=== PATIENT | male | born 1990 | race Two or more races ===

== ENCOUNTER 2024-08-30 17:40 | Observation (INO) ==
[2024-08-30 18:08] LABS: BASOPHILS # (AUTO) 0.1 10^3/uL (0.0-0.1); BASOPHILS % (AUTO) 1.1 %; EOSINOPHILS # (AUTO) 0.2 10^3/uL (0.0-0.7); EOSINOPHILS % (AUTO) 3.3 %; HCT - HEMATOCRIT 34.9 % (42.0-52.0); HGB - HEMOGLOBIN 11.8 g/dL (14.0-18.0); LYMPHOCYTES % (AUTO) 30.4 %; MEAN CORPUSCULAR HEMOGLOBIN 33.2 pg (27.0-31.0); MEAN CORPUSCULAR HGB CONC 33.8 g/dL (32.0-36.0); MEAN CORPUSCULAR VOLUME 98.3 fL (80.0-94.0); MEAN PLATELET VOLUME 9.5 fL (7.4-11.4); MONOCYTES % (AUTO) 14.8 %; NEUTROPHILS # (AUTO) 3.1 10^3/uL (1.5-6.6); NEUTROPHILS % (AUTO) 48.5 %; PLT - PLATELET COUNT 255 10^3/uL (130-450); RED BLOOD COUNT 3.55 10^6/uL (4.70-6.10); RED CELL DISTRIBUTION WIDTH 13.1 % (12.0-15.0); WHITE BLOOD COUNT 6.4 x10^3/uL (4.8-10.8)
--- NOTE | 2024-08-30 18:14 | ED Physician Documentation ---
History of Present Illness Stated complaint Stated Complaint: ETOH WITHDRAWL/HALLUCINATIONS Chief complaint Chief Complaint: Neuro Additonal information Additional information: 34-year-old male currently at [facility] for the last 3 days presents emergency department for increased altered mental status confusion and jaundice. Last alcoholic beverage was about 3 days ago he usually drinks about 1/5 of vodka a day. Patient is completely altered and unable to contribute anything to the history he is seen restless fidgeting with himself and saying things that do not make any sense. His girlfriend who is only been with for a total of 4 months is at bedside she is unsure if he has any history of alcohol withdrawal seizures but does report she has that he has been to rehab in the past. [place] Coma Scale Assess Eye opening: Spontaneous Verbal response: Inappropriate Motor response: Obeys Commands Total score: 13 Meds/Allgy Home Medications Ambulatory Orders Medication Instructions Recorded Confirmed No Known Home Medications 08/30/24 08/30/24 Allergies Allergies Allergy/AdvReac Type Severity Reaction Status Date / Time No Known Drug Allergies Allergy Verified 08/30/24 17:48 PFSH Social History Social History Do you feel safe in your home environment?: Yes Suffered physical, verbal, emotional, or financial abuse?: No Exam Exam Vital Signs: Vital Signs x48h Temp Pulse Resp BP Pulse Ox 08/30/24 19:28 62 19 98/79 97 08/30/24 17:46 36.9 C 88 20 123/81 98 Constitutional abnormal general appearance (Ill-appearing, jaundice), no apparent distress, average body habitus, no limitations and alert HENMT normocephalic and head/scalp atraumatic Eyes PERRL, conjunctivae normal, scleral icterus noted (Severe jaundice to the bilateral sclera) and alignment normal Chest inspection of chest normal and palpation of chest normal Respiratory breath sounds equal bilaterally and normal respiratory effort Cardiovascular normal heart rate noted and regular rhythm noted Gastrointestinal abdomen normal to inspection, abdomen soft to palpation and nontender to palpation Genitourinary no CVA tenderness Extremities normal to inspection and normal to palpation Psychiatry orientation abnormal (disoriented to person), (disoriented to place) and (disoriented to time) and thought process abnormality noted (confused) Skin no jaundice (jaundiced skin) Results Vitals Vitals: Vital Signs - 24 hr 08/30/24 17:46 08/30/24 19:28 Temperature 36.9 C Temperature Source Temporal Artery Scan Pulse Rate 88 62 Respiratory Rate 20 19 Blood Pressure 123/81 98/79 O2 Saturation 98 97 O2 Source Room air Room air Pain Intensity 0 0 Oxygen O2 Source Room air Labs Labs: Laboratory Tests 08/30/24 08/30/24 18:05 18:32 WBC 6.4 RBC 3.55 L Hgb 11.8 L Hct 34.9 L MCV 98.3 H MCH 33.2 H MCHC 33.8 RDW 13.1 Plt Count 255 MPV 9.5 Neut # (Auto) 3.1 Lymph # (Auto) 2.0 [place] # (Auto) 1.0 Eos # (Auto) 0.2 Baso # (Auto) 0.1 Absolute Nucleated RBC 0.00 Nucleated RBC % 0.0 PT 13.5 H INR 1.2 Sodium 138 Potassium 3.4 L Chloride 97 L Carbon Dioxide 34 H Anion Gap 7.0 BUN 7 Creatinine 0.5 L Estimated GFR (MDRD) 193 Glucose 101 Calcium 9.8 Total Bilirubin 5.6 H AST 192 H ALT 67 H Alkaline Phosphatase 328 H Ammonia 49.8 Total Protein 8.0 Albumin 3.8 Globulin 4.2 Albumin/Globulin Ratio 0.9 L Urine Color YELLOW Urine Clarity CLEAR Urine pH 7.0 Ur Specific [place] <=1.005 Urine Protein NEGATIVE Urine Glucose (UA) NEGATIVE Urine Ketones NEGATIVE Urine Occult Blood NEGATIVE Urine Nitrite NEGATIVE Urine Bilirubin NEGATIVE Urine Urobilinogen 1 (NORMAL) Ur Leukocyte Esterase NEGATIVE Ur Microscopic Review NOT INDICATED Urine Culture Comments NOT INDICATED Urine Opiates Screen NEGATIVE Ur Buprenorphine Scrn NEGATIVE Ur Oxycodone Screen NEGATIVE Urine Methadone Screen NEGATIVE Ur Barbiturates Screen NEGATIVE Ur Tricyclics Screen NEGATIVE Ur Phencyclidine Scrn NEGATIVE Ur Amphetamine Screen NEGATIVE U Methamphetamines Scrn NEGATIVE U Benzodiazepines Scrn POSITIVE H Urine Cocaine Screen NEGATIVE U Cannabinoids Screen NEGATIVE Ur Drug Screen Comment CUTOFF CONC BELOW: Ethyl Alcohol < 10.0 Rads (name of study) Head CT without: Relevant Findings:: Final report received and EMP independent interpretation of test Interpretation: IMPRESSION: No acute intracranial pathology. Chronic right maxillary sinusitis. PD Medical Decision Making ED course ED course: 34-year-old male presents emerged department via EMS from [facility]. Patient is very altered he is unable to contribute anything to the history is very jaundiced with scleral icterus. Labs are complete for further evaluation no leukocytosis mild anemia, hemoglobin 11.8 PT 13.5 INR 1.2. Creatinine 0.5, normal GFR and BUN. Bilirubin elevated at 5.6, AST 892, ALT 67, alk phos 328. He has no abdominal tenderness or pain with palpation normal urinalysis. U tox is positive for benzos and negative EtOH. Given how significant patient's symptoms are with his alcohol withdrawal symptoms and liver failure I do not believe that he is safe to discharge back to [facility]. His ammonia level was normal. I spoke with Starr Monaco, hospitalist DARLENE who has graciously agreed to admit patient for alcohol withdrawal symptoms and alcoholic liver failure. Head CT was also complete while he was here given his altered mental status and was found to not have any intracranial hemorrhages or abnormalities or findings. Discharge Plan Discharge Patient Disposition: 68 [facility] DC/Xfer Condition: Stable Print Language: [place]araguan Stand Alone Forms: PCP List
[2024-08-30 18:16] LABS: INR 1.2 (0.8-1.2); PT - PROTHROMBIN TIME 13.5 secs (9.9-12.6)
[2024-08-30] MEDS: LORazepam 2 MG/ML VIAL IVP STA ×2 (18:19→20:23)
[2024-08-30] MEDS: SODIUM CHLORIDE 0.9% 1,000 ML IV STA (18:21)
[2024-08-30] MEDS: THIAMINE 100 MG TABLET PO STA (18:21)
[2024-08-30 18:26] LABS: ALBUMIN 3.8 g/dL (3.2-5.5); ALBUMIN/GLOBULIN RATIO 0.9 (1.0-2.2); ALKALINE PHOSPHATASE 328 IU/L (42-121); ALT ALANINE AMINOTRANSFERASE 67 IU/L (10-60); AST ASPARTATE AMINOTRANSFERASE 192 IU/L (10-42); BILIRUBIN,TOTAL 5.6 mg/dL (0.2-1.0); BUN - BLOOD UREA NITROGEN 7 mg/dL (6-20); CALCIUM 9.8 mg/dL (8.5-10.3); CARBON DIOXIDE - CO2 34 mmol/L (21-32); CHLORIDE 97 mmol/L (101-111); CREATININE 0.5 mg/dL (0.6-1.3); ETOH - ETHANOL < 10.0 mg/dL; GFR - MDRD 193 (>89); GLUCOSE 101 mg/dL (74-104); POTASSIUM 3.4 mmol/L (3.5-4.5); SODIUM 138 mmol/L (135-145)
[2024-08-30 18:40] LABS: BILIRUBIN,URINE NEGATIVE (NEGATIVE); GLUCOSE, URINE (UA) NEGATIVE (NEGATIVE); KETONES,URINE (UA) NEGATIVE (NEGATIVE); LEUKOCYTE ESTERASE, URINE NEGATIVE (NEGATIVE); NITRITE,URINE NEGATIVE (NEGATIVE); OCCULT BLOOD,URINE NEGATIVE (NEGATIVE); PROTEIN,URINE NEGATIVE (NEGATIVE); UROBILINOGEN,URINE 1 (NORMAL) E.U./dL (NORMAL)
[2024-08-30 18:42] LABS: CLARITY,URINE CLEAR (CLEAR)
[2024-08-30 18:52] LABS: AMPHETAMINE SCREEN,URINE NEGATIVE (NEGATIVE); BARBITURATE SCREEN,UR NEGATIVE (NEGATIVE); BENZODIAZEPINES SCREEN, URINE POSITIVE (NEGATIVE); BUPRENORPHINE SCREEN, URINE NEGATIVE (NEGATIVE); COCAINE SCREEN URINE NEGATIVE (NEGATIVE); METHADONE SCREEN, URINE NEGATIVE (NEGATIVE); METHAMPHETAMINES SCREEN, URINE NEGATIVE (NEGATIVE); OPIATE SCREEN, URINE NEGATIVE (NEGATIVE); OXYCODONE SCREEN, URINE NEGATIVE (NEGATIVE); THC CANNABINOID SCREEN, URINE NEGATIVE (NEGATIVE); TRICYCLIC ANTIDEPRESSANT,URINE NEGATIVE (NEGATIVE)
--- NOTE | 2024-08-30 19:08 | CT Report ---
PROCEDURE: CT Head WO INDICATIONS: AMS TECHNIQUE: Noncontrast 4.5 mm thick angled axial sections acquired from the foramen magnum to the vertex. For r adiation dose reduction, the following was used: automated exposure control, adjustment of mA and/or kV according to patient size. COMPARISON: None. FINDINGS: Image quality: Excellent. CSF spaces: Basal cisterns are patent. No extra-axial fluid collections. Ventricles are normal in size and shape. Brain: No midline shift. No intracranial masses or hemorrhage. Lock-white matter interface is norm al. Skull and face: Calvarium and visualized facial bones are intact, without suspicious lesions. Sinuses: Circumferential thickening of the right maxillary sinus, with mild wall sclerosis and hypert rophy. IMPRESSION: No acute intracranial pathology. Chronic right maxillary sinusitis. Reviewed by: Albert Santos MD on 08/30/2024 7:06 PM PDT Approved by: Albert Santos MD on 08/30/2024 7:06 PM PDT Station ID: [id number]
--- NOTE | 2024-08-30 21:15 | HISTORY & PHYSICAL EXAMINATION ---
Chief Complaint Chief Complaint Chief Complaint: hallucinations and tremors History of Present Illness Admitted From Admitted From:: [facility] History Obtained From Records Reviewed: none History obtained from: patient and SO Kaci History of Present Illness HPI Comment/Other: 34 yo male presents with above complaints. voluntary to alcohol detox on 08/28. having worsening sx for the last day, has been several days without a drink. tremulous and confused in the Ed. SO Kaci at bedside states this confusion started yesterday, much worse today. He was excited to go to detox and hopeful for the future. has been drinking since age [age]. today was also noted to have icterus of his skin and sclera. Kaci states that this was not present on 08/28. does have some nausea. Does not smoke, denies cannabis or other substances. has been unemployed for about a month. no pMhx or surgical hx. mother and father both with alcoholism in recovery Meds/Allgy Home Medications Ambulatory Orders Medication Instructions Recorded Confirmed No Known Home Medications 08/30/24 08/30/24 Allergies Allergies Allergy/AdvReac Type Severity Reaction Status Date / Time No Known Drug Allergies Allergy Verified 08/30/24 17:48 PFSH Active Problems All Active Problems (Updated 08/30/24 @ 21:27 by DARLENE Sherwood) Acalculous cholecystitis (Acute) Alcohol withdrawal (Acute) Acute hepatic failure (Acute) Social History Social History Do you feel safe in your home environment?: Yes Suffered physical, verbal, emotional, or financial abuse?: No POLST Patient has POLST: No Review of Systems Status of ROS: 10 or more systems reviewed and unremarkable except as noted in history and below Constitutional Reports: Malaise; Denies: Fatigue Eyes Denies: Change in vision Cardiovascular Reports: palpitations Respiratory Reports: Cough (recent cold, improving) Gastrointestinal Reports: Abdominal pain Integumentary/Breast Denies: Itching Neurological Denies: Headache Psychiatric Reports: Anxiety and Visual hallucinations Endocrine Denies: Fatigue Prior Level of Functionality: independent Exam Exam Vital Signs: Vital Signs x48h Temp Pulse Resp BP Pulse Ox 08/30/24 20:59 75 19 118/72 98 08/30/24 19:28 62 19 98/79 97 08/30/24 17:46 36.9 C 88 20 123/81 98 Constitutional normal general appearance mild distress, well groomed, tremulous HENMT normocephalic, hearing grossly normal bilaterally and dentition normal Eyes scleral icterus Neck/C-Spine visual inspection normal and trachea midline Lymph no lymphadenopathy noted Chest inspection of chest normal Respiratory breath sounds equal bilaterally, normal respiratory effort and clear to auscultation bilaterally Cardiovascular normal heart rate noted and regular rhythm noted Gastrointestinal abdomen normal to inspection and abdomen soft to palpation mild upper abdominal tenderness. Genitourinary no CVA tenderness Back/Pelvis spine normal to inspection Extremities normal to inspection Neurology speech normal oriented to self, month and year. not oriented to place. tremulous Psychiatry cooperative pleasant and cooperative. intermittently confused, then corrects self, re directable. Skin jaundiced. Conclusion/Plan Problem List (1) Alcohol withdrawal: Plan: patient with acute withdrawal, this is his 3rd day without a drink. his CIWA scores are 17-20 in the ED. he is responding to ativan. he is neither suicidal nor homicidal. redirectable with his confusion and behaviors. His CT of the head is normal. His ammonia level is normal. I believe his delirium is due to alcohol withdrawal and not some other cause. We will treat his alcohol withdrawal with IV Ativan based on CIWA scores. He is tremulous and is feeling anxious but does not show any tachycardia on his vital signs. Discussed with PABLO Bunn in the emergency department decision was made to admit this patient both for his acute alcohol withdrawal with elevated CIWA scores in his acute liver failure.I will admit him to observation status (2) Acute hepatic failure: Plan: I have requested the ED perform right upper quadrant ultrasound to ensure that he does not have biliary disease although I think the most likely cause of his hepatic failure is alcohol use. We will monitor his liver functions in the AM. Will also check magnesium phosphorus. His coagulation studies show an INR of 1.2 this is not grossly abnormal. Abdominal ultrasound will show any ascites that is present. His abdomen is soft and does not appear distended. He does not have an umbilical hernia. (3) Acalculous cholecystitis: Plan: Discussed right upper quadrant ultrasound with the clock repair technician. This is a preliminary reading. Gallbladder appears distended with sludge. There is no biliary ductal dilatation, thus ruling out choledocholithiasis. However given the distended gallbladder with sludge cannot rule out acalculous cholecystitis. Therefore I will place his patient on Zosyn IV 4 times daily until I have final read back which will probably be in the morning. Plan I have spent 65 minutes in the care of this patient today. This includes time [id number], review and ordering of diagnostic imaging and laboratory studies and consultation with other providers. Monitoring the patient's signs symptoms, evaluation of medication effectiveness and patient's response to treatment. Lab Results Lab results reviewed: Yes 08/30/24 18:05 08/30/24 18:05 Diagnostic Imaging Results Diagnostic Imaging Results Comments: RUQUS is pending at the time of this dictation CT of the head report reviewed. No abnormality seen. There is chronic right maxillary sinusitis Core Measures Anticipated LOS I expect patient to be DC'd or transferred within 96 hours.: Yes Issues Hospital Issues and Management Plan: Acute hepatic failure and alcohol withdrawal we will treat per protocol. Will monitor liver functions. Will rule out biliary tract disease. DVT/VTE - Prophylaxis VTE/DVT Device ordered at admit?: Yes VTE/DVT Prophylaxis med ordered at admit?: Yes
[2024-08-30] MEDS: HEPARIN 5,000 UNIT/ML VIAL SUBQ SCH (22:15)
[2024-08-30] MEDS: PIPERACILLIN/TAZOBACTAM 3.375 GM in SODIUM CHLORIDE 0.9% MINIBAG 100 ML IV SCH (22:15)
--- NOTE | 2024-08-30 22:27 | Ultrasound Report ---
PROCEDURE: US Abdomen Limited INDICATIONS: RUQ, eval gallbladder, jaundice TECHNIQUE: Real-time focused scanning was performed of the abdomen, with image documentation. COMPARISONS: None. FINDINGS: Liver: The liver is enlarged measuring 23 cm in length. Parenchyma is diffusely prominently dense, c oarse, and hyperechoic. A discrete mass cannot be identified. There is appropriate direction of flow in the portal vein. Gallbladder: Dependent layering sludge in the gallbladder. The wall is at the upper limits of normal thickness measuring 3.3 mm. No pericholecystic fluid or sonographic Purdy sign. Biliary ducts: Intrahepatic bile ducts are non-dilated. Extrahepatic bile duct caliber measures 3.8 mm. Normal is 6-7 mm or less in diameter, or 10 mm or less post-cholecystectomy. Pancreas: Not well seen due to bowel gas and patient limitations. Right kidney: Normal in size and echotexture. Right kidney measures 12.7 cm long. No hydronephrosis or nephrolithiasis. No solid masses. No complex renal cystic lesions which require follow-up. IVC: Intrahepatic inferior vena cava is patent. Miscellaneous: No free abdominal fluid. IMPRESSION: Coarse and markedly hyperechoic hepatic parenchyma suggesting steatosis and/or other intrinsic liver disease. No biliary dilatation. Gallbladder sludge without other signs of acute cholecystitis. Reviewed by: Amelia Fisher MD on 08/30/2024 10:26 PM PDT Approved by: Amelia Fisher MD on 08/30/2024 10:26 PM PDT Station ID: [id number]
[2024-08-30] MEDS: LORazepam 2 MG/ML VIAL IVP PRN (22:45)
[2024-08-30] MEDS: IBUPROFEN 400 MG TABLET PO PRN (22:45)
[2024-08-31] MEDS: SODIUM CHLORIDE FLUSH 0.9% 10 ML SYRINGE IVP SCH (00:19)
[2024-08-31] MEDS: ONDANSETRON 4 MG/2 ML VIAL IVP PRN (01:27)
[2024-08-31] MEDS: SODIUM CHLORIDE FLUSH 0.9% 10 ML SYRINGE IVP PRN (05:12)
[2024-08-31 06:06] LABS: BASOPHILS # (AUTO) 0.1 10^3/uL (0.0-0.1); BASOPHILS % (AUTO) 1.2 %; EOSINOPHILS # (AUTO) 0.2 10^3/uL (0.0-0.7); EOSINOPHILS % (AUTO) 3.7 %; HCT - HEMATOCRIT 36.1 % (42.0-52.0); HGB - HEMOGLOBIN 11.9 g/dL (14.0-18.0); LYMPHOCYTES # (AUTO) 1.8 10^3/uL (1.5-3.5); LYMPHOCYTES % (AUTO) 27.3 %; MEAN CORPUSCULAR HEMOGLOBIN 33.1 pg (27.0-31.0); MEAN CORPUSCULAR VOLUME 100.6 fL (80.0-94.0); MEAN PLATELET VOLUME 9.7 fL (7.4-11.4); MONOCYTES % (AUTO) 15.6 %; NEUTROPHILS # (AUTO) 3.1 10^3/uL (1.5-6.6); NEUTROPHILS % (AUTO) 48.3 %; PLT - PLATELET COUNT 266 10^3/uL (130-450); RED BLOOD COUNT 3.59 10^6/uL (4.70-6.10); RED CELL DISTRIBUTION WIDTH 13.2 % (12.0-15.0); WHITE BLOOD COUNT 6.4 x10^3/uL (4.8-10.8)
[2024-08-31 06:21] LABS: ALBUMIN 3.7 g/dL (3.2-5.5); BILIRUBIN,DIRECT 2.94 mg/dL (0.03-0.18); CALCIUM 9.1 mg/dL (8.5-10.3); CREATININE 0.5 mg/dL (0.6-1.3); MAGNESIUM 1.9 mg/dL (1.7-2.3); PHOSPHORUS 2.4 mg/dL (2.5-5.0); POTASSIUM 3.6 mmol/L (3.5-4.5); TOTAL PROTEIN 7.4 g/dL (6.4-8.9)
--- NOTE | 2024-08-31 09:56 | PROVIDER PROGRESS NOTE ---
Subjective Subjective Subjective: Patient is very sleepy, lethargic. He does awaken, and is calm. He remains tremulous. This is his fourth day without alcohol. He states that usually takes him 2 weeks to get through withdrawals. He has never had any withdrawal seizures in the past. He said he started noticing yellowing of his eyes when he got here yesterday. He has never been told that he has liver disease. He has a long family history of alcohol use. He states that he lost his brother, and that has been him drink more frequently. Current Medications Current Medications Current Medications: Current Medications Generic Name Dose Route Start Last Admin Trade Name Freq PRN Reason Stop Dose Admin Heparin Sodium (Porcine) 5,000 unit 08/30/24 21:58 08/30/24 22:15 Heparin 5,000 Unit/Ml Vial SUBQ Not Given BID [facility] Ibuprofen 400 mg 08/30/24 21:58 08/31/24 03:35 Ibuprofen 400 Mg Tablet PO 400 mg Q4HR PRN Administration Pain 1 to 4 Lorazepam 2 mg 08/30/24 21:58 08/31/24 06:26 Lorazepam 2 Mg/Ml Vial IVP 2 mg Q30M PRN Administration CIWA >8 Protocol Ondansetron HCl 4 mg 08/30/24 21:58 08/31/24 01:27 Ondansetron 4 Mg/2 Ml Vial IVP 4 mg Q6HR PRN Administration Nausea / Vomiting Polyethylene Glycol 17 gm 08/31/24 09:00 Polyethylene Glycol 3350 17 Gm Packet PO DAILY [facility] Multivit/Folic Acid/Iron 1 tab 08/31/24 09:00 Vitamin Tablet PO DAILY [facility] Sodium Chloride 10 ml 08/30/24 21:58 08/31/24 05:12 Sodium Chloride Flush 0.9% 10 Ml Syringe IVP 10 ml PRN PRN Administration NEEDED PER PROVIDER ORDERS Sodium Chloride 10 ml 08/31/24 01:00 08/31/24 00:19 Sodium Chloride Flush 0.9% 10 Ml Syringe IVP 10 ml 0100,0900,1700 [facility] Administration Thiamine HCl 100 mg 08/31/24 09:00 Thiamine 100 Mg Tablet PO DAILY [facility] Trazodone HCl 100 mg 08/31/24 21:00 Trazodone 50 Mg Tablet PO QPM [facility] Objective Vital Signs/Intake & Output Reviewed Vital Signs: Yes Vital Signs: Vital Signs x48h Temp Pulse Resp BP Pulse Ox 08/31/24 04:25 98.4 F 62 18 124/84 99 Intake & Output: Intake & Output 08/28/24 08/29/24 08/30/24 08/31/24 23:59 23:59 23:59 23:59 Intake Total 1100 / 1100 300 / 300 Balance 1100 / 1100 300 / 300 Weight (kg) 75.9 kg Objective General Appearance: positive No acute distress, Alert and Lethargic Eyes Bilateral: positive Normal inspection, PERRL and Other (Scleral icterus noted bilaterally) ENT: positive ENT inspection nml, Pharynx nml and No signs of dehydration Neck: positive Nml inspection and Thyroid nml Respiratory: positive Chest non-tender; negative Wheezes, Rales or Rhonchi Cardiovascular: positive Regular rate & rhythm, No murmur and No gallop; negative Systolic murmur Abdomen: positive Non-tender, No organomegaly and No distention; negative Hepatomegaly or Splenomegaly Back: positive Nml inspection; negative CVA tenderness (R) or CVA tenderness (L) Skin: positive Color nml, No rash, Warm and Dry Extremities: positive Non-tender, Full ROM and No pedal edema Neurologic/Psychiatric: positive Oriented x3, Motor nml and Mood/affect nml Lab Results 08/31/24 05:37 08/31/24 05:37 Other Labs: Lab Results x24hrs 08/31/24 08/30/24 08/30/24 Range/Units 05:37 18:32 18:05 WBC 6.4 6.4 (4.8-10.8) x10^3/uL RBC 3.59 L 3.55 L (4.70-6.10) 10^6/uL Hgb 11.9 L 11.8 L (14.0-18.0) g/dL Hct 36.1 L 34.9 L (42.0-52.0) % MCV 100.6 H 98.3 H (80.0-94.0) fL MCH 33.1 H 33.2 H (27.0-31.0) pg MCHC 33.0 33.8 (32.0-36.0) g/dL RDW 13.2 13.1 (12.0-15.0) % Plt Count 266 255 (130-450) 10^3/uL MPV 9.7 9.5 (7.4-11.4) fL Neut # (Auto) 3.1 3.1 (1.5-6.6) 10^3/uL Lymph # (Auto) 1.8 2.0 (1.5-3.5) 10^3/uL [place] # (Auto) 1.0 1.0 (0.0-1.0) 10^3/uL Eos # (Auto) 0.2 0.2 (0.0-0.7) 10^3/uL Baso # (Auto) 0.1 0.1 (0.0-0.1) 10^3/uL Absolute Nucleated RBC 0.00 0.00 x10^3/uL Nucleated RBC % 0.0 0.0 /100WBC PT 13.5 H (9.9-12.6) secs INR 1.2 (0.8-1.2) Sodium 142 138 (135-145) mmol/L Potassium 3.6 3.4 L (3.5-4.5) mmol/L Chloride 102 97 L (101-111) mmol/L Carbon Dioxide 33 H 34 H (21-32) mmol/L Anion Gap 7.0 7.0 (6-13) BUN 8 7 (6-20) mg/dL Creatinine 0.5 L 0.5 L (0.6-1.3) mg/dL Estimated GFR (MDRD) 193 193 (>89) Glucose 82 101 (74-104) mg/dL Calcium 9.1 9.8 (8.5-10.3) mg/dL Phosphorus 2.4 L (2.5-5.0) mg/dL Magnesium 1.9 (1.7-2.3) mg/dL Total Bilirubin 5.0 H 5.6 H (0.2-1.0) mg/dL Direct Bilirubin 2.94 H (0.03-0.18) mg/dL AST 147 H 192 H (10-42) IU/L ALT 60 67 H (10-60) IU/L Alkaline Phosphatase 305 H 328 H (42-121) IU/L Ammonia 49.8 (18-72) umol/L Total Protein 7.4 8.0 (6.4-8.9) g/dL Albumin 3.7 3.8 (3.2-5.5) g/dL Globulin 3.7 4.2 (2.1-4.2) g/dL Albumin/Globulin Ratio 0.9 L (1.0-2.2) Urine Color YELLOW Urine Clarity CLEAR (CLEAR) Urine pH 7.0 (5.0-7.5) PH Ur Specific [place] <=1.005 (1.002-1.030) Urine Protein NEGATIVE (NEGATIVE) mg/dL Urine Glucose (UA) NEGATIVE (NEGATIVE) mg/dL Urine Ketones NEGATIVE (NEGATIVE) mg/dL Urine Occult Blood NEGATIVE (NEGATIVE) Urine Nitrite NEGATIVE (NEGATIVE) Urine Bilirubin NEGATIVE (NEGATIVE) Urine Urobilinogen 1 (NORMAL) (NORMAL) E.U./dL Ur Leukocyte Esterase NEGATIVE (NEGATIVE) Ur Microscopic Review NOT INDICATED Urine Culture Comments NOT INDICATED Urine Opiates Screen NEGATIVE (NEGATIVE) Ur Buprenorphine Scrn NEGATIVE (NEGATIVE) Ur Oxycodone Screen NEGATIVE (NEGATIVE) Urine Methadone Screen NEGATIVE (NEGATIVE) Ur Barbiturates Screen NEGATIVE (NEGATIVE) Ur Tricyclics Screen NEGATIVE (NEGATIVE) Ur Phencyclidine Scrn NEGATIVE (NEGATIVE) Ur Amphetamine Screen NEGATIVE (NEGATIVE) U Methamphetamines Scrn NEGATIVE (NEGATIVE) U Benzodiazepines Scrn POSITIVE H (NEGATIVE) Urine Cocaine Screen NEGATIVE (NEGATIVE) U Cannabinoids Screen NEGATIVE (NEGATIVE) Ur Drug Screen Comment CUTOFF CONC BELOW: Ethyl Alcohol < 10.0 mg/dL Diagnostic Imaging Diagnostic Imaging Results: positive Final report reviewed Assessment/Plan Problem List (1) Alcohol withdrawal: Impression: Patient remains in acute alcohol withdrawal. Last drink was 4 days ago. Scoring between 15-17 on CIWA. Continue Ativan as needed. Did give 1 dose of Valium. Continue multivitamin, thiamine, folic acid supplementation. Continue alcohol cessation counseling. Social work consulted, appreciate recommendations. Qualifiers: Complication of substance-induced condition: with unspecified complication Qualified Code(s): F10.939 - Alcohol use, unspecified with withdrawal, unspecified (2) Alcoholic hepatitis: Impression: Transaminitis improving. AST greater than ALT in typical alcohol use labs. [place] discriminant function of 12.6. Not a candidate for prednisolone at this time. Continue to trend. Qualifiers: Ascites presence: unspecified Qualified Code(s): K70.10 - Alcoholic hepatitis without ascites (3) Macrocytic anemia: Impression: Likely due to folic acid deficiency in setting of chronic alcohol use, as well as direct bone marrow suppression due to alcohol use. Continue to trend, transfuse for hemoglobin less than 7. (4) Hyperbilirubinemia: Impression: Scleral icterus, jaundice, elevated bilirubin likely attributed to livers inability to conjugate bilirubin, leading to an elevated direct bilirubinemia. Continue to trend, improving. Abdominal ultrasound shows gallbladder sludge without signs of acute cholecystitis. (5) Gallbladder sludge: Impression: Scleral icterus, jaundice, elevated bilirubin likely attributed to livers inability to conjugate bilirubin, leading to an elevated direct bilirubinemia. Continue to trend, improving. Abdominal ultrasound shows gallbladder sludge without signs of acute cholecystitis.
[2024-08-31] MEDS: polyethylene glycoL 3350 17 GM PACKET PO SCH (10:07)
[2024-08-31] MEDS: PRENATAL VITAMIN TABLET PO SCH (10:07)
[2024-08-31] MEDS: THIAMINE 100 MG TABLET PO SCH (10:08)
[2024-08-31] MEDS: POTASSIUM PHOSPHATE 15 MMOL in SODIUM CHLORIDE 0.9% 250 ML IV ONE (13:16)
--- NOTE | 2024-08-31 15:18 | PHARMACY PROGRESS NOTE ---
Best Possible Medication History Admit Date and Time: 08/30/242057 Home Medications Medication Instructions Recorded Confirmed Type No Known Home Medications 08/30/24 08/30/24 History Processed by: Pharmacy Medications reviewed in ED?: No Medication History completed: Yes Patient Interview: Completed Secondary Source(s): Insurance records [facility] Statement: Per [facility] interview with patient, and review of [employer] insurance records. As the person ultimately responsible for medication therapy, providers are able to order a medication from an existing home medication list in [facility] via the "Reconcile Routine" prior to Confirmation of that medication by application support technician. Such practice is discouraged except when the physician, in their clinical [place] gment, deems that a medical need exists for a medication without regard to previous use.
[2024-08-31] MEDS: traZODone 50 MG TABLET PO SCH (20:51)
[2024-08-31] MEDS: diazePAM INJ 5 MG/ML SYRINGE IVP ONE (22:44)
[2024-09-01 00:28] VITALS: O2SAT 97
[2024-09-01 06:07] LABS: BASOPHILS # (AUTO) 0.1 10^3/uL (0.0-0.1); BASOPHILS % (AUTO) 1.9 %; EOSINOPHILS # (AUTO) 0.3 10^3/uL (0.0-0.7); EOSINOPHILS % (AUTO) 4.2 %; HCT - HEMATOCRIT 38.6 % (42.0-52.0); HGB - HEMOGLOBIN 12.5 g/dL (14.0-18.0); LYMPHOCYTES # (AUTO) 1.9 10^3/uL (1.5-3.5); LYMPHOCYTES % (AUTO) 27.7 %; MEAN CORPUSCULAR HEMOGLOBIN 33.2 pg (27.0-31.0); MEAN CORPUSCULAR HGB CONC 32.4 g/dL (32.0-36.0); MEAN CORPUSCULAR VOLUME 102.4 fL (80.0-94.0); MEAN PLATELET VOLUME 9.7 fL (7.4-11.4); MONOCYTES # (AUTO) 0.8 10^3/uL (0.0-1.0); MONOCYTES % (AUTO) 11.4 %; NEUTROPHILS # (AUTO) 3.5 10^3/uL (1.5-6.6); NEUTROPHILS % (AUTO) 50.6 %; PLT - PLATELET COUNT 290 10^3/uL (130-450); RED BLOOD COUNT 3.77 10^6/uL (4.70-6.10); RED CELL DISTRIBUTION WIDTH 13.6 % (12.0-15.0)
[2024-09-01 06:13] LABS: INR 1.1 (0.8-1.2); PT - PROTHROMBIN TIME 11.7 secs (9.9-12.6)
[2024-09-01 06:23] LABS: ALBUMIN 3.9 g/dL (3.2-5.5); BILIRUBIN,DIRECT 2.43 mg/dL (0.03-0.18); CALCIUM 9.3 mg/dL (8.5-10.3); CREATININE 0.6 mg/dL (0.6-1.3); POTASSIUM 3.9 mmol/L (3.5-4.5); TOTAL PROTEIN 7.9 g/dL (6.4-8.9)
--- NOTE | 2024-09-01 12:01 | Discharge Summary ---
"Discharge Summary Admit Date: 08/30/24 Discharge Date: 09/01/24 Discharging Provider: Dr. Jovany Martínez Code Status: Attempt Resuscitation Discharge Facility Name: Home DIAGNOSES Admission Diagnoses: Alcohol withdrawal Acute hepatic failure Acalculous cholecystitis Discharge Diagnoses with Status of Each Condition: Alcohol withdrawalpatient CIWA has been slowly decreasing. He still has some mild tremors, but would like to go home. Ativan held for about 8 hours, patient is doing well, alert and oriented x 4, no more diaphoresis. He is motivated to stay sober. Will continue multivitamin, thiamine, folic acid supplementation on discharge. He received resources from to about follow-up, and was advised to stick with those. Alcoholic hepatitisresolving. His Maddrey discriminant function was 12.6, and he was not started on prednisolone. He needs close follow-up with the primary care provider to continue to trend this. Macrocytic anemiacontinue folic acid supplementation. Continue abstain from alcohol use. Hyperbilirubinemiaimproving. Likely due to damage to livers inability to conjugated bilirubin leading to an elevated direct bilirubinemia in setting of alcoholic hepatitis. An abdominal ultrasound was done to rule out cholecystitis and it shows gallbladder sludge but no active inflammation of the gallbladder. Continue close follow-up with primary care provider to continue to trend these values. Gallbladder sludgeabdominal ultrasound shows gallbladder sludge without signs of acute cholecystitis. Advised to continue close follow-up with primary care provider in the outpatient setting. HPI History of Present Illness: Per DARLENE Monaco: 34 yo male presents with above complaints. voluntary to alcohol detox on 08/28. having worsening sx for the last day, has been several days without a drink. tremulous and confused in the Ed. SO Kaci at bedside states this confusion started yesterday, much worse today. He was excited to go to detox and hopeful for the future. has been drinking since age [age]. today was also noted to have icterus of his skin and sclera. Kaci states that this was not present on 08/28. does have some nausea. Does not smoke, denies cannabis or other substances. has been unemployed for about a month. no pMhx or surgical hx. mother and father both with alcoholism in recovery CONSULTS | PROCEDURES Consultations: Social work Procedures: Head CT, abdominal ultrasound HOSPITAL COURSE Hospital Course: Patient is a 34-year-old male with history of extensive alcohol use who presented from alcohol detox center, [facility], for hallucinations and tremors. When he was seen, he had vascular icterus, as well as jaundice. He had a transaminitis with AST of 192, and ALT of 67. His bilirubin was also elevated at 5.6, with a direct bilirubinemia. He was started on IV fluids, multivitamin supplementation, thiamine supplementation. He was found to be in acute alcoholic hepatitis, but his numbers continue to improve during his stay here. His Madrey discriminant function was less than 32, so was not started on prednisolone. He had no right upper quadrant pain, and an abdominal ultrasound showed gallbladder sludge without acute cholecystitis. His withdrawals continue to improve during his stay. As such, he was deemed suitable for discharge home. He was provided with multiple resources at his detox center, which he was advised to follow-up with. He was also advised to follow-up with a primary care provider to continue to trend his LFTs, as well as his bilirubin. His girlfriend was present in the room, and the above was explained to her as well, and she demonstrated understanding. As such, she was deemed suitable for discharge home. ALLERGIES Allergies Allergy/AdvReac Type Severity Reaction Status Date / Time No Known Drug Allergies Allergy Verified 08/30/24 17:48 MEDICATIONS Ambulatory Orders Medication Instructions Recorded Confirmed gabapentin 300 mg capsule 300 mg PO TID #30 caps 09/01/24 vit,calcium 27-ferrous 1 tab PO DAILY #30 tabs 09/01/24 fum 60 mg iron-folic acid 1 mg tablet (Trinatal Rx 1) thiamine mononitrate (vit B1) 100 100 mg PO DAILY #30 tabs 09/01/24 mg tablet trazodone 50 mg tablet 50 mg PO QPM #30 tabs 09/01/24 PHYSICAL EXAM AT DISCHARGE Vital Signs: Vital Signs x48h Temp Pulse Resp BP Pulse Ox 09/01/24 14:02 98.6 F 63 16 138/88 H 97 09/01/24 08:28 97.9 F 77 16 120/82 97 General Appearance: positive No acute distress and Alert Eyes Bilateral: positive Normal inspection, PERRL and Other (Slight scleral icterus, improving) ENT: positive ENT inspection nml, Pharynx nml and No signs of dehydration Neck: positive Nml inspection, Thyroid nml and No JVD Respiratory: positive Chest non-tender, No respiratory distress and Breath sounds nml; negative Wheezes, Rales or Rhonchi Cardiovascular: positive Regular rate & rhythm, No murmur and No gallop; negative Tachycardia Peripheral Pulses: positive 2+ Abdomen: positive Non-tender, No distention and Other (Purdy's sign negative); negative Tenderness, Hepatomegaly or Splenomegaly Back: positive Nml inspection; negative CVA tenderness (R) or CVA tenderness (L) Skin: positive Color nml, No rash, Warm and Dry Extremities: positive Non-tender, Full ROM, Nml appearance and No pedal edema Neurologic/Psychiatric: positive Oriented x3, Mood/affect nml and Other (Bilateral tremors UE noted) LABS 09/01/24 05:45 09/01/24 05:45 DIAGNOSTIC IMAGING Diagnostic Imaging Results: Final report reviewed FOLLOW UP Follow Up: Follow-up with substance abuse resources provided. Follow-up with primary care provider. TIME SPENT Time Spent in Discharge (Minutes): 35 Discharge Plan Discharge Patient Disposition: Home, Self Care Condition: Stable Prescriptions: New Trinatal Rx 1 60 mg iron-1 mg Tablet 1 tab PO DAILY Qty: 30 0RF thiamine mononitrate (vit B1) 100 mg Tablet 100 mg PO DAILY Qty: 30 0RF gabapentin 300 mg capsule 300 mg PO TID Qty: 30 0RF trazodone 50 mg tablet 50 mg PO QPM Qty: 30 0RF Diet: Regular Interventions: Belongings Inventory Last Done: 08/30/24 22:27 Health Concerns: You came in because you were going through alcohol withdrawal, and were very tremulous and having hallucinations. We were also worried about your gallbladder and your liver numbers. Over time, they have continued to improve. Your withdrawal symptoms have also improved. It is very important that you continue to abstain from drinking alcohol because in the future, damage to your liver may be permanent. I am glad that you went to a detox center, and they provided you with resources to maintain your sobriety. I am sending you home on some vitamins and supplements which will be helpful for you. I want you to follow-up and make an appointment with a primary care provider so they can recheck your liver numbers, as well as your gallbladder numbers and make sure everything is looking okay. We are glad you are feeling better, thank you for letting us take care of you. Print Language: Greek Patient Instructions: Addiction Alcohol, ED Withdrawal Alcohol Stand Alone Forms: PCP List"
[2024-09-01 14:04] VITALS: BP 138/88; TEMP 98.6
== END 2024-09-01 15:52 | disposition home or self-care (01) ==
LOC: MS2 17:40 → ED 17:40 → MS2 21:48
PROVIDERS: ADMIT Physician Assistant Medical; ATTEND Physician Assistant Medical
DX: D53.9 Nutritional anemia, unspecified; Z56.0 Unemployment, unspecified; K70.40 Alcoholic hepatic failure without coma; Z81.1 Family history of alcohol abuse and dependence; F10.939 Alcohol use, unspecified with withdrawal, unspecified; K70.10 Alcoholic hepatitis without ascites; R74.01 Elevation of levels of liver transaminase levels; Z63.4 Disappearance and death of family member; K81.9 Cholecystitis, unspecified